=== PATIENT | female | born 2000 | race Caucasian/White ===

== ENCOUNTER 2018-12-28 14:45 | Emergency (ER) | payer BC ==
--- NOTE | 2018-12-28 15:36 | UC ---
Dizzy HPI HPI Summary: 18 yo female present here with about a 24 hour hx of fatigue. She has a mild retrobulbar TIM and moderate myalgias/arthralgias anorexia and mild nausea no CP or SOB no UTI symptoms no vaginal d/c or itch no tick bites is not outdoors much - History Of Current Complaint Chief Complaint: UCGeneralIllness Stated Complaint: TIRED/NAUS. Time Seen by Provider: 12/28/18 15:21 Hx Obtained From: Patient Onset/Duration: Sudden Onset, Lasting Hours Timing: Constant Severity Initially: Mild Severity Currently: Mild Pain Intensity: 4 Pain Scale Used: 0-10 Numeric Character: Weak - fatigued Aggravating Factor(s): Nothing Alleviating Factor(s): Nothing Associated Signs And Symptoms: Positive: Nausea. Negative: Vomiting, Diaphoresis, Tinnitus, Chest Pain, SOB, Palpitations, Unsteady Gait, Visual Changes, Decreased Oral Intake, Change In Medication, Change In Diet, OTC Medications - Allergies/Home Medications Allergies/Adverse Reactions: Allergies Allergy/AdvReac Type Severity Reaction Status Date / Time No Known Allergies Allergy Verified 12/28/18 15:09 Home Medications: Home Medications Norethindrone-E.estradiol-Iron [Junel Fe 04/10 1-20 mg-Mcg] 1 tab PO DAILY [History Confirmed 12/28/18] PMH/Surg Hx/FS Hx/Imm Hx Previously Healthy: Yes - Surgical History Surgical History: None - Family History Known Family History: Negative: Cardiac Disease, Hypertension, Diabetes - Social History Alcohol Use: Weekly Substance Use Type: None Smoking Status (MU): Never Smoked Tobacco Review of Systems All Other Systems Reviewed And Are Negative: Yes Constitutional: Positive: Fatigue Skin: Positive: Negative Eyes: Positive: Negative ENT: Positive: Negative Respiratory: Positive: Negative Cardiovascular: Positive: Negative Gastrointestinal: Positive: Negative Genitourinary: Positive: Negative Motor: Positive: Negative Neurovascular: Positive: Negative Musculoskeletal: Positive: Arthralgia, Myalgia Neurological: Positive: Headache Psychological: Positive: Negative Physical Exam Triage Information Reviewed: Yes Appearance: Well-Appearing, No Pain Distress, Well-Nourished Vital Signs: Initial Vital Signs Temp 99.1 F 12/28/18 15:06 Pulse 83 12/28/18 15:06 Resp 16 12/28/18 15:06 BP 139/97 12/28/18 15:06 Pulse Ox 100 12/28/18 15:06 Vital Signs Reviewed: Yes Eyes: Positive: Conjunctiva Clear ENT: Positive: Hearing grossly normal, Pharynx normal, TMs normal, Uvula midline. Negative: Nasal congestion, Nasal drainage, Tonsillar swelling, Tonsillar exudate, Trismus, Muffled voice, Hoarse voice, Dental tenderness, Sinus tenderness Neck: Positive: Supple, Nontender, No Lymphadenopathy Respiratory: Positive: Lungs clear, Normal breath sounds, No respiratory distress Cardiovascular: Positive: RRR, No Murmur Abdomen Description: Positive: Nontender, No Organomegaly, Soft. Negative: CVA Tenderness (R), CVA Tenderness (L) Bowel Sounds: Positive: Present Musculoskeletal: Positive: ROM Intact, No Edema Neurological: Positive: Alert Psychological Exam: Normal Skin Exam: Normal Dizzy Course/Dx - Differential Dx/Diagnosis Provider Diagnosis: Viral syndrome, Elevated BP without diagnosis of hypertension Discharge ED - Sign-Out/Discharge Documenting (check all that apply): Patient Departure All imaging exams completed and their final reports reviewed: No Studies - Discharge Plan Condition: Stable Disposition: HOME Patient Education Materials: Viral Syndrome (ED), Fatigue (ED) Forms: *School Release Referrals: No Primary Care Phys,NOPCP [Primary Care Provider] - Additional Instructions: I blood count and test for mono are pending RECHECK FOR NEW OR WORSENING SYMPTOMS RECHECK IF NOT BETTER IN 4-5 DAYS REST FLUIDS TYLENOL OR ADVIL IF NEEDED If you mono test is negative mono is still a diagnostic possibility as it early in course of you illness BP needs to be rechecked in 2-12 weeks - Billing Disposition and Condition Condition: STABLE Disposition: Home
[2018-12-29 11:32] LABS: Hematocrit 39 % (35-47); Hemoglobin 12.7 g/dL (12.0-16.0); Mean Corpuscular HGB Conc 33 g/dL (31-36); Mean Corpuscular Hemoglobin 27 pg (27-31); Mean Corpuscular Volume 81 fL (80-97); Red Cell Distribution Width 13 % (10-15); White Blood Count 5.1 10^3/uL (3.5-10.8)
[2018-12-29 12:45] LABS: ABS Lymphocytes 0.7 10^3/ul (1.0-4.8); ABS Monocytes 0.5 10^3/ul (0-0.8); ABS Neutrophils 3.9 10^3/ul (1.5-7.7); Eosinophil % 0.3 %; Lymphocyte % 13.4 %; Nucleated Red Blood Cells % 0.2
--- NOTE | 2018-12-30 07:21 | UC ---
- Progress Note Progress Note: Please advise that her blood count is normal. She has a mild increase in monocytes, consistent with virus. This could be very early mono, advise follow up in 4 or 5 days if she continues to feel unwell. Course/Dx - Diagnoses Provider Diagnoses: Viral syndrome, Elevated BP without diagnosis of hypertension Discharge ED - Sign-Out/Discharge Documenting (check all that apply): Patient Departure All imaging exams completed and their final reports reviewed: No Studies - Discharge Plan Condition: Stable Disposition: HOME Patient Education Materials: Viral Syndrome (ED), Fatigue (ED) Forms: *School Release Referrals: No Primary Care Phys,NOPCP [Primary Care Provider] - Additional Instructions: I blood count and test for mono are pending RECHECK FOR NEW OR WORSENING SYMPTOMS RECHECK IF NOT BETTER IN 4-5 DAYS REST FLUIDS TYLENOL OR ADVIL IF NEEDED If you mono test is negative mono is still a diagnostic possibility as it early in course of you illness BP needs to be rechecked in 2-12 weeks - Billing Disposition and Condition Condition: STABLE Disposition: Home
== END 2018-12-28 15:43 | disposition home or self-care (01) ==
LOC: UCCORT 14:45
DX: B34.9 Viral infection, unspecified (principal); R03.0 Elevated blood-pressure reading, without diagnosis of hypertension
CPT/HCPCS: 36415; 85025; 85060; 86308; 99201; G0463